=== PATIENT | female | born 1990 | race Caucasian/White ===

== ENCOUNTER 2021-07-13 19:30 | Emergency (ER) | payer OTHER, BC ==
[~2021-07-13] VITALS: Ht 170.2 cm; Wt 69.4 kg
[2021-07-13 19:45] VITALS: BP_SYST 97
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
--- NOTE | 2021-07-13 20:00 | NUR ---
ER in triage examining patient.
[2021-07-13 21:23] VITALS: BP_SYST 98
--- NOTE | 2021-07-13 21:23 | NUR ---
Patient given written and verbal discharge instructions and verbalizes understanding. ER MD discussed with patient the results and treatment provided. Patient in stable condition. ID arm band removed. No Rx given. Patient educated on pain management and to follow up with PMD. Pain Scale 2/10. Opportunity for questions provided and answered.
== END 2021-07-13 21:23 | disposition home or self-care (01) ==
LOC: SED 19:30
DX: O9A.211 Injury, poisoning and certain other consequences of external causes complicating pregnancy, first trimester (principal); S39.91XA Unspecified injury of abdomen, initial encounter; Z3A.12 12 weeks gestation of pregnancy; V49.49XA Driver injured in collision with other motor vehicles in traffic accident, initial encounter; Y93.89 Activity, other specified; Y92.89 Other specified places as the place of occurrence of the external cause; Y99.8 Other external cause status
CPT/HCPCS: 76801; 99284

== ENCOUNTER 2022-04-20 17:44 | Inpatient (IN) | payer BC ==
[~2022-04-20] VITALS: Ht 170.2 cm; Wt 72.1 kg
[2022-04-20 17:58] VITALS: BP_SYST 135
--- NOTE | 2022-04-20 18:10 | NUR ---
Patient triaged and placed in waiting room. VSS and patient appears in no acute distress at this time. Accompanied by self , awaiting available bed, and MD notified of need for MSE.
--- NOTE | 2022-04-20 18:15 | NUR ---
Pt brought by friend, Zoe&Ox4, pt presents to ER with epigastric pain and nausea, no vomiting note at this time, skin pink and warm, cap refill <3, VSS, respirations even and unlabored, will cont to monitor.
--- NOTE | 2022-04-20 19:20 | NUR ---
PATIENT PLACED IN BED 5 FOR EVAL, REPORT GIVEN TO ONCOMING RN.
[2022-04-20 19:25] LABS: BILIRUBIN,URINE 1+ (NEGATIVE); BLOOD, URINE NEGATIVE (NEGATIVE); CLARITY/URINE CLEAR (CLEAR); GLUCOSE,URINE NEGATIVE (NEGATIVE); KETONES,URINE 1+ (NEGATIVE); LEUKOCYTE ESTERASE ,URINE TRACE (NEGATIVE); NITRITE, URINE NEGATIVE (NEGATIVE); PROTEIN URINE NEGATIVE (NEGATIVE)
[2022-04-20 19:31] LABS: COLOR,URINE AMBER (YELLOW)
[2022-04-20 19:38] LABS: BACTERIA,URINE FEW /HPF (None Seen); MUCUS,URINE 1+ /LPF (None Seen); RBC,URINE 0-3 /HPF (0-3); WBC,URINE 0-3 /HPF (0-3)
--- NOTE | 2022-04-20 19:40 | NUR ---
PT IS AA&OX4. AFEBRILE. NAD. C/O 4/10 EPIGASTRIC PAIN. SHE TOOK ZOFRAN ODT & PANTROPRAZOLE 40MG PO PRIOR TO COMING TO THE ER AND IT HAS HELPED HER ABD PAIN. PER PT. SHE'S HAD GASTRIC SLEEVE SURGERY IN SEPTEMBER 2021 AND NOW SHE'S BEEN HAVING N/V, ABD PAIN AND WHEN SHE'S VOMITING, SHE BURPS ALOT. SHE HAS AN UPCOMING SURGERY THIS COMING 2021. AMBULATORY W/ STEADY GAIT. SAFE & HAZARD FREE ENVIRONMENT PROVIDED.
[2022-04-20 20:00] LABS: BASOPHILS % (AUTO) 0.2 % (0.0-2.0); EOSINOPHILS % (AUTO) 0.4 % (0.0-4.0); HEMATOCRIT 35.3 % (36-48); HEMOGLOBIN 11.8 g/dL (12.0-16.0); LYMPHOCYTES # (AUTO) 2.6 K/uL (1.0-5.5); LYMPHOCYTES % (AUTO) 24.3 % (20.5-51.5); MEAN CORPUSCULAR HEMOGLOBIN 28 pg (27-31); MEAN CORPUSCULAR HGB CONC 33 % (32-36); MEAN CORPUSCULAR VOLUME 83 fL (79.0-98.0); MONOCYTES # (AUTO) 0.9 K/uL (0.0-1.0); MONOCYTES % (AUTO) 8.7 % (1.7-9.3); NEUTROPHILS # (AUTO) 7.1 K/uL (1.8-7.7); NEUTROPHILS % (AUTO) 66.4 % (40.0-70.0); PLATELET COUNT (AUTO) 245 K/uL (130-430); RED BLOOD CELL COUNT(AUTO) 4.28 MIL/uL (4.2-6.2); RED CELL DISTRIBUTION WIDTH 13.4 % (9.0-15.0); WHITE BLOOD COUNT (AUTO) 10.7 K/uL (4.8-10.8)
[2022-04-20 20:10] LABS: CALCIUM 8.8 mg/dL (8.4-11.0); CREATININE 0.71 mg/dL (0.55-1.30); POTASSIUM 3.5 mmol/L (3.5-5.1)
[2022-04-20 20:29] LABS: ALBUMIN 3.7 g/dL (3.4-4.8); TOTAL BILIRUBIN 0.8 mg/dL (0.0-1.0)
--- NOTE | 2022-04-20 20:33 | NUR ---
LAB CALLED RE: PT'S CRITICAL VALUE AMYLASE= 3,593. LIPASE= 12,655. DR. FRITZ MADE AWARE.
--- NOTE | 2022-04-20 21:15 | NUR ---
COVID SWAB COLLECTED AND SENT TO LAB.
--- NOTE | 2022-04-20 21:16 | NUR ---
# 20 gauge angiocath placed to R AC. Use of asceptic technique. Opsite placed over site. Blood return noted. Flushed with 10 cc of normal saline. No evidence of infiltration noted. Patient tolerated well.
[2022-04-20] MEDS ORDERED: NACL 0.9% 1,000 ML IV ONE (21:30)
[2022-04-20] MEDS ORDERED: MORPHINE 4 MG INJ. 4 MG/ML VIAL IVP ONE (21:30)
[2022-04-20] MEDS ORDERED: ONDANSETRON HCL 4 MG/2 ML VIAL IVP ONE (21:30)
--- NOTE | 2022-04-20 21:37 | NUR ---
Admit bed requested Patient will be admitted to care of Dr. MOSQUERA. Admitted to MED SURG unit. Diagnosis GALLSTONES PACREATITIS Inpatient YES Observation NO Orientation concerns or request close to nursing station NO Covid Status PENDING On vent or bipap NO Isolation requirements NO Needs a sitter NO From Home Yes Requires Dialysis No Med Rec Completed Yes
[2022-04-20] MEDS ORDERED: PRO40 PO (21:40)
[2022-04-20] MEDS ORDERED: ONDA-8 TL (21:40)
[2022-04-20] MEDS: cefTRIAXone 1 GM in D5W 50 ML IV SCH (22:03)
[2022-04-20] MEDS ORDERED: cefTRIAXone 1 GM VIAL ONE (22:05)
--- NOTE | 2022-04-20 22:47 | NUR ---
Patient will be admitted to care of [facility]. Admitted to MEDSURG unit. Will go to room 122B. Belongings list completed. Complete and up to date summary report printed. SBAR report to be given at bedside with opportunity for questions.
[2022-04-20] MEDS ORDERED: D5/0.45 NS 1,000 ML IV SCH (23:00)
--- NOTE | 2022-04-20 23:00 | NUR ---
ADMISSION NOTE Received patient from ER via gurney. Patient admitted with diagnosis of GALLSTONES PANCREATITIS. Patient is awake, alert, oriented X 4. Patient oriented to hospital room, call light, toileting, pain management and safety-teach back done. Patient informed that their room number is 122b. Personal belongings checked and Belongings List documented. Call light within reach.
[2022-04-20 23:05] VITALS: BP_SYST 111
[2022-04-21] MEDS: MORPHINE 4 MG INJ. 4 MG/ML VIAL IVP PRN (01:26)
[2022-04-21] MEDS ORDERED: FLU VACC QS2022-23(6MOS UP)/PF 0.5 ML/SYR SYRINGE I.M. ONE (03:15)
--- NOTE | 2022-04-21 05:30 | NUR ---
CONSULTATION PAGED/CALLED Reason for Consultation: GALLSTONES PANCREATITS Person Who was Notified: TONJA Consulting Physician: BABS ARCHULETA CLIENT SOLUTIONS DIRECTOR Arborist Climber Specialty: Ordering Physician: DEMETRI
--- NOTE | 2022-04-21 05:32 | NUR ---
CONSULTATION PAGED/CALLED Reason for Consultation: GALLSTONES PANCREATITIS Person Who was Notified: SONAL Consulting Physician: Blanca ROA Cigarette Making Examiner Specialty: Ordering Physician: DEMETRI
[2022-04-21 07:09] LABS: BASOPHILS % (AUTO) 0.3 % (0.0-2.0); EOSINOPHILS # (AUTO) 0.1 K/uL (0.0-0.4); EOSINOPHILS % (AUTO) 0.9 % (0.0-4.0); HEMATOCRIT 35.1 % (36-48); HEMOGLOBIN 11.5 g/dL (12.0-16.0); LYMPHOCYTES # (AUTO) 2.8 K/uL (1.0-5.5); LYMPHOCYTES % (AUTO) 45.1 % (20.5-51.5); MEAN CORPUSCULAR HEMOGLOBIN 27 pg (27-31); MEAN CORPUSCULAR HGB CONC 33 % (32-36); MEAN CORPUSCULAR VOLUME 83 fL (79.0-98.0); MONOCYTES # (AUTO) 0.4 K/uL (0.0-1.0); NEUTROPHILS # (AUTO) 2.9 K/uL (1.8-7.7); NEUTROPHILS % (AUTO) 46.7 % (40.0-70.0); PLATELET COUNT (AUTO) 210 K/uL (130-430); RED BLOOD CELL COUNT(AUTO) 4.23 MIL/uL (4.2-6.2); RED CELL DISTRIBUTION WIDTH 13.4 % (9.0-15.0); WHITE BLOOD COUNT (AUTO) 6.2 K/uL (4.8-10.8)
[2022-04-21 07:19] LABS: CALCIUM 7.9 mg/dL (8.4-11.0); CREATININE 0.64 mg/dL (0.55-1.30); POTASSIUM 3.4 mmol/L (3.5-5.1)
[2022-04-21 07:22] LABS: ALBUMIN 3.1 g/dL (3.4-4.8); TOTAL BILIRUBIN 0.7 mg/dL (0.0-1.0)
[2022-04-21 08:00] VITALS: BP_SYST 105
[2022-04-21 12:00] VITALS: BP_SYST 116
[2022-04-21] MEDS: MORPHINE 2 MG/ML INJ. SYRINGE IVP PRN (15:46)
[2022-04-21 16:00] VITALS: BP_SYST 108
[2022-04-21] MEDS: LR 1,000 ML IV SCH ×2 (16:47→23:42)
[2022-04-21 20:47] VITALS: BP_SYST 105
[2022-04-21] MEDS ORDERED: cefTRIAXone 1 GM VIAL IV SCH (21:00)
[2022-04-21] MEDS ORDERED: iohexoL 350 mgI/mL, 100 ML INFUS..BTL IV ONE (21:16)
--- NOTE | 2022-04-21 21:26 | NUR ---
Patient went to CT of abd/pelvis via wheelchair in no acute distress.
--- NOTE | 2022-04-21 21:41 | NUR ---
Patient's back from the CT scan via wheelchair in no acute distress. IVF reinserted back
[2022-04-22] MEDS ORDERED: cefTRIAXone 1 GM IVPB PREMIX 50 ML IV ONE (00:05)
[2022-04-22] MEDS: cefTRIAXone 1 GM in D5W 50 ML IV SCH (00:12)
[2022-04-22 00:16] VITALS: BP_SYST 113
[2022-04-22] MEDS: LR 1,000 ML IV SCH ×4 (06:44→21:27)
[2022-04-22 08:00] VITALS: BP_SYST 100; BP_SYST 110
[2022-04-22 12:00] VITALS: BP_SYST 110
[2022-04-22] MEDS: MORPHINE 2 MG/ML INJ. SYRINGE IVP PRN (15:56)
[2022-04-22 16:00] VITALS: BP_SYST 112
--- NOTE | 2022-04-22 17:30 | NUR ---
RECEIVED CALL FROM CHARGE NURSE STATING PATIENT CALL MARKETING DEVELOPMENT REPRESENTATIVE STATING SHE WOULD LIKE TO LEAVE AMA. PT VERBALIZED TO ME THAT SHE WOULD LIKE TO HAVE A TIME FRAME ON WHEN THE SURGEON WILL SEE HER. I EXPLAINED TO PT THE SURGEON HAS BEEN CONSULTED TODAY AND THE SURGEON HAS 24 HOURS TO ROUND. I INFORMED PT THE SURGEON HAS BEEN MADE AWARE OF THE CONSULT. PAGED AT THIS TIME.
--- NOTE | 2022-04-22 17:40 | NUR ---
RECEIVED CALL FROM MD. MD STATED HE WILL TRY TO SEE PATIENT TONIGHT, IF NOT HE WILL SEE PT TOMORROW. PROVIDED MD UPDATE ON ADMISSION AND MOST RECENT WBC ALT AND AST LEVELS. STATED HE CAN NOT PERFORM SURGERY UNTIL LIVER ENZYMES LEVELS ARE SAFE. I COMMUNICATED THIS INFORMATION TO PATIENT. ALSO EXPLAIN THE HEALTH RISK OF LEAVING AMA. I EXPLAINED TO PATIENT THAT SHE CAN NOT BE HELD AGAINST HER WILL. PT VERBALIZED UNDERSTANDING OF TEACHINGS. PATIENT AGREED TO STAY AT HOSPITAL.
--- NOTE | 2022-04-22 17:48 | NUR ---
CONSULTATION: REASON FOR CONSULT: GALLSTONES CONSULTING PHYSICIAN: OSVALDO ORDERED BY: DEMETRI SPOKE WITH JOSELYN [phone]
[2022-04-22 20:08] VITALS: BP_SYST 114
[2022-04-22] MEDS: MORPHINE 4 MG INJ. 4 MG/ML VIAL IVP PRN (21:28)
[2022-04-23] MEDS ORDERED: cefTRIAXone 1 GM IVPB PREMIX 50 ML IV ONE (02:40)
[2022-04-23] MEDS: cefTRIAXone 1 GM in D5W 50 ML IV SCH (02:58)
[2022-04-23 03:42] VITALS: BP_SYST 94
[2022-04-23] MEDS: LR 1,000 ML IV SCH ×4 (03:48→19:42)
[2022-04-23 06:40] LABS: BASOPHILS # (AUTO) 0.1 K/uL (0.0-0.2); BASOPHILS % (AUTO) 1.7 % (0.0-2.0); EOSINOPHILS # (AUTO) 0.1 K/uL (0.0-0.4); EOSINOPHILS % (AUTO) 1.4 % (0.0-4.0); HEMATOCRIT 33.9 % (36-48); HEMOGLOBIN 11.3 g/dL (12.0-16.0); LYMPHOCYTES # (AUTO) 1.4 K/uL (1.0-5.5); LYMPHOCYTES % (AUTO) 33.1 % (20.5-51.5); MEAN CORPUSCULAR HEMOGLOBIN 27 pg (27-31); MEAN CORPUSCULAR HGB CONC 33 % (32-36); MEAN CORPUSCULAR VOLUME 82 fL (79.0-98.0); MONOCYTES # (AUTO) 0.4 K/uL (0.0-1.0); MONOCYTES % (AUTO) 9.2 % (1.7-9.3); NEUTROPHILS # (AUTO) 2.3 K/uL (1.8-7.7); NEUTROPHILS % (AUTO) 54.6 % (40.0-70.0); PLATELET COUNT (AUTO) 224 K/uL (130-430); RED BLOOD CELL COUNT(AUTO) 4.12 MIL/uL (4.2-6.2); RED CELL DISTRIBUTION WIDTH 12.9 % (9.0-15.0); WHITE BLOOD COUNT (AUTO) 4.2 K/uL (4.8-10.8)
[2022-04-23 06:58] LABS: CALCIUM 8.2 mg/dL (8.4-11.0); CREATININE 0.57 mg/dL (0.55-1.30); POTASSIUM 3.7 mmol/L (3.5-5.1); TOTAL BILIRUBIN 0.5 mg/dL (0.0-1.0)
--- NOTE | 2022-04-23 07:00 | NUR ---
RECEIVED AN ORDER OF TORADOL IVP Q 6H PRN. MD RILEY DOES NOT WANT PATIENT TO GET MORPHINE FOUR BEFORE HYDA SCAN. PATIENT MADE AWARE AND VERBALIZED UNDERSTANDING AND THE REASON WHY.
[2022-04-23] MEDS: MORPHINE 4 MG INJ. 4 MG/ML VIAL IVP PRN (07:09)
[2022-04-23 08:30] VITALS: BP_SYST 117
[2022-04-23] MEDS: KETOROLAC TROMETHAMINE 30 MG VIAL IVP PRN ×2 (09:59→21:14)
[2022-04-23 12:00] VITALS: BP_SYST 112
[2022-04-23 16:00] VITALS: BP_SYST 116
[2022-04-23] MEDS: MORPHINE 2 MG/ML INJ. SYRINGE IVP PRN (18:47)
--- NOTE | 2022-04-23 19:30 | NUR ---
Surgeon Called: Spoke with Dr Correa and relayed lab results and Hida Scan results.With orders for Cmp with lipase and amylase in am. Informed primary nurse Bekah ,surgeon will come and talk to patient tomorrow after lab results and updates.No surgery needed until Pancreatitis is resolved per surgeon.
--- NOTE | 2022-04-23 19:40 | NUR ---
Opening note Received patient awake, AOx4, resting in bed. No distress and nonlabored breathing on room air. IVF infusing via IV to RAC. Bed is locked in lowest position, side rails 2x and call light w/in reach. Bed alarm is off, she is ambulatory and has been walking to restroom. Updated board.
[2022-04-23 20:10] VITALS: BP_SYST 120
--- NOTE | 2022-04-23 21:14 | NUR ---
Pain med, Patient reporting moderate pain to abdomen. Administered Toradol as ordered. No further needs, wctm
[2022-04-23] MEDS: CEFTRIAXONE SOD 1 GM/ DEXTROSE,ISO 50 ML PREMIX IV SCH (23:23)
--- NOTE | 2022-04-23 23:23 | NUR ---
Rocephin Administered Rocephin, reviewed side effects and she verbalized understanding, infusing well, no s/sx of infiltration. Presently pain is under control, she is comfortable.
[2022-04-24] VITALS: BP_SYST 103
[2022-04-24] MEDS: LR 1,000 ML IV SCH ×4 (00:35→21:01)
--- NOTE | 2022-04-24 00:39 | NUR ---
IVF Hung new bag of LR, infusing well, tolerating.
--- NOTE | 2022-04-24 06:50 | NUR ---
closing note Patient is resting in bed, awake and presently denies pain. No distress. IVF infusing well, no s/sx of infiltration noted. Hung new bag of IVF - LR. Needs met throughout shift, call light w/in reach. Will endorse care.
[2022-04-24 08:10] LABS: ALBUMIN 2.9 g/dL (3.4-4.8); CALCIUM 8.4 mg/dL (8.4-11.0); CREATININE 0.62 mg/dL (0.55-1.30); POTASSIUM 3.8 mmol/L (3.5-5.1)
[2022-04-24 12:38] VITALS: BP_SYST 143
[2022-04-24 17:11] VITALS: BP_SYST 104
[2022-04-24 19:40] VITALS: BP_SYST 111
[2022-04-24] MEDS: KETOROLAC TROMETHAMINE 30 MG VIAL IVP PRN (21:01)
[2022-04-24] MEDS: CEFTRIAXONE SOD 1 GM/ DEXTROSE,ISO 50 ML PREMIX IV SCH (21:03)
[2022-04-25] VITALS: BP_SYST 110
[2022-04-25] MEDS: LR 1,000 ML IV SCH ×5 (00:17→23:09)
--- NOTE | 2022-04-25 06:50 | NUR ---
CLOSING NOTE PATIENT VERBALIZED NO ABDOMINAL PAIN THROUGHOUT THE NIGHT. AT THIS TIME, PATIENT IS RESTING IN BED, STABLE, NO SIGNS OF RESPIRATORY DISTRESS. SHE IS AMBULATING WELL WITHOUT ASSISTANCE NEEDED. BED IS LOCKED, AND AT THE LOWEST LEVEL. FALL, SAFETY, RESPIRATORY, AND ASPIRATION PRECAUTIONS HAVE BEEN IN PLACE THROUGHOUT THE SHIFT. WILL CONTINUE TO MONITOR UNTIL REPORT IS GIVEN AT BEDSIDE TO AM NURSE. PATIENT HAS BEEN NPO THROUGHOUT THE NIGHT.
[2022-04-25 08:04] VITALS: BP_SYST 111
[2022-04-25 08:06] LABS: HEPATITIS A AB, IgM Negative (Negative); HEPATITIS B CORE AB, IgM Negative (Negative); HEPATITIS B SURFACE AG Negative (Negative)
--- NOTE | 2022-04-25 08:18 | NUR ---
CONSULTATION PAGED0= REASON FOR CONSULTATION:GALLSTONES WAS CONSULT CALLED?Y PERSON WHO WAS NOTIFIED:JOSSELINE CONSULTING PHYSICIAN:NEL DIAZ FIELD AGENT SPECIALTY:SURGEON FIELD AGENT PHONE NUMBER:[phone] REQUESTING PHYSICIAN:SUSAN BARRERA
[2022-04-25 08:28] LABS: BASOPHILS % (AUTO) 0.6 % (0.0-2.0); EOSINOPHILS % (AUTO) 1.3 % (0.0-4.0); HEMOGLOBIN 10.9 g/dL (12.0-16.0); LYMPHOCYTES # (AUTO) 1.2 K/uL (1.0-5.5); LYMPHOCYTES % (AUTO) 32.5 % (20.5-51.5); MEAN CORPUSCULAR HEMOGLOBIN 27 pg (27-31); MEAN CORPUSCULAR HGB CONC 33 % (32-36); MEAN CORPUSCULAR VOLUME 83 fL (79.0-98.0); MONOCYTES # (AUTO) 0.2 K/uL (0.0-1.0); MONOCYTES % (AUTO) 5.2 % (1.7-9.3); NEUTROPHILS # (AUTO) 2.2 K/uL (1.8-7.7); NEUTROPHILS % (AUTO) 60.4 % (40.0-70.0); PLATELET COUNT (AUTO) 225 K/uL (130-430); RED BLOOD CELL COUNT(AUTO) 3.98 MIL/uL (4.2-6.2); WHITE BLOOD COUNT (AUTO) 3.7 K/uL (4.8-10.8)
[2022-04-25 08:46] LABS: ALBUMIN 3.2 g/dL (3.4-4.8); CALCIUM 8.5 mg/dL (8.4-11.0); CREATININE 0.63 mg/dL (0.55-1.30); POTASSIUM 4.2 mmol/L (3.5-5.1); TOTAL BILIRUBIN 0.6 mg/dL (0.0-1.0)
[2022-04-25 11:10] VITALS: BP_SYST 105
--- NOTE | 2022-04-25 12:30 | NUR ---
Dietitian Recommendations * Consider Clear Liquid diet w/ Ensure Clear TID after Sx and progression to a solid, low-lactose, low-fat, high-protein diet as tolerated during recovery LP, MS, RD Please refer to Nutrition Assessment for details. Addendum: 04/25/22 at [address] Amended: Links added.
--- NOTE | 2022-04-25 13:29 | NUR ---
DR OSVALDO TREVINO MD THIS MORNING. STATED THAT, HE PLAN TO DO SURGERY Friday04/25/22 DEPENDING ON THE AMYLASE AND LIPASE RESULT
[2022-04-25 16:10] VITALS: BP_SYST 118
--- NOTE | 2022-04-25 16:49 | NUR ---
0800: PATIENT NPO DUE TO ELEVATED AMYLASE AND LIPASE LEVEL. PLAN FOR SURGERY WHEN LAB RESULT W/IN RANGE PER DR. LEMONS. NO C/O ANY PAIN OR DISCOMFORT NOTED. WILL CONTINUE TO MONITOR PATIENT. 1200: AMYLASE AND LIPASE RESULT TO DR. LEMONS. PLAN FOR SURGERY TOMORROW AFTERNOON 1600: PATIENT CONTINUE TO BE PAINFREE, COMFORTABLE.
--- NOTE | 2022-04-25 19:00 | NUR ---
1900: STARTED ON CLEAR LIQUID DIET W/O ANY ABDOMINAL DISCOMFORT NOTED. TO BE NPO POST MIDNIGHT, SURGERY SCHEDULE TENTATIVELY FOR TOMORROW AFTERNOON. ENDORSED TO PM SHIFT NURSE.
--- NOTE | 2022-04-25 19:52 | NUR ---
AWAKE AND ALERT PATIENT INDEPENDENT WITH ADL'S. SAYS SHE IS PENDING SURGERY FRIDAY DISCHARGE ON FRIDAY PER HER SURGEON'S ORDER.
[2022-04-25 19:59] VITALS: BP_SYST 112
[2022-04-25] MEDS: CEFTRIAXONE SOD 1 GM/ DEXTROSE,ISO 50 ML PREMIX IV SCH (21:13)
[2022-04-25 23:30] VITALS: BP_SYST 113
[2022-04-26] VITALS: BP_SYST 113
[2022-04-26] MEDS: LR 1,000 ML IV SCH ×4 (04:47→22:01)
--- NOTE | 2022-04-26 05:19 | NUR ---
PATIENT GIVEN CHG BATH, NEW LINENS, GOWN, PAD FOR MENSES AND REQUEST TO OBTAIN URINE FOR SURGERY.
[2022-04-26 05:53] LABS: BILIRUBIN,URINE NEGATIVE (NEGATIVE); BLOOD, URINE 3+ (NEGATIVE); CLARITY/URINE CLEAR (CLEAR); COLOR,URINE YELLOW (YELLOW); GLUCOSE,URINE NEGATIVE (NEGATIVE); KETONES,URINE 1+ (NEGATIVE); LEUKOCYTE ESTERASE ,URINE NEGATIVE (NEGATIVE); NITRITE, URINE NEGATIVE (NEGATIVE); PROTEIN URINE NEGATIVE (NEGATIVE); UROBILINOGEN,URINE 0.2 (0.2-1.0)
[2022-04-26 06:28] LABS: BACTERIA,URINE FEW /HPF (None Seen); RBC,URINE 50-80 /HPF (0-3)
[2022-04-26 06:29] LABS: MUCUS,URINE None Seen /LPF (None Seen)
[2022-04-26 07:37] LABS: BASOPHILS % (AUTO) 0.8 % (0.0-2.0); EOSINOPHILS # (AUTO) 0.1 K/uL (0.0-0.4); EOSINOPHILS % (AUTO) 2.3 % (0.0-4.0); HEMOGLOBIN 10.9 g/dL (12.0-16.0); LYMPHOCYTES # (AUTO) 1.5 K/uL (1.0-5.5); LYMPHOCYTES % (AUTO) 37.4 % (20.5-51.5); MEAN CORPUSCULAR HEMOGLOBIN 28 pg (27-31); MEAN CORPUSCULAR HGB CONC 34 % (32-36); MEAN CORPUSCULAR VOLUME 81 fL (79.0-98.0); MONOCYTES # (AUTO) 0.4 K/uL (0.0-1.0); MONOCYTES % (AUTO) 10.5 % (1.7-9.3); NEUTROPHILS # (AUTO) 1.9 K/uL (1.8-7.7); PLATELET COUNT (AUTO) 222 K/uL (130-430); RED BLOOD CELL COUNT(AUTO) 3.92 MIL/uL (4.2-6.2)
[2022-04-26 08:10] LABS: CALCIUM 8.4 mg/dL (8.4-11.0); CREATININE 0.59 mg/dL (0.55-1.30); POTASSIUM 3.8 mmol/L (3.5-5.1)
[2022-04-26 08:13] LABS: PROTHROMBIN TIME 10.9 SECS (9.5-12.5)
[2022-04-26 12:00] VITALS: BP_SYST 90
[2022-04-26 16:00] VITALS: BP_SYST 108
--- NOTE | 2022-04-26 17:45 | NUR ---
Dr Sanchez requested that nurse come to bedside with him to give patient report. When in room he informed patient that her surgery was dropped and it will happen tommorow on 04/27/2022. Primary nurse did not know that surgery was allegely postponed. Patient immediately started crying and was very upset and anxious and threaten to walk out of hospital AMA. One of the Doctors came by unamely and said they were waiting for other staff to appear to OR before surgery could take place. Surgery was suppose to be at 1500, patient says surgeon has not spoke with her and she never saw the surgeon who was to have surgery on her to remove gallbladder. Patient says Daniel did the same thing last week and was not knowledgeable of what was going on with patient. Patient says nurse gave good service but it was the doctor that made her upset because he never knows whats going on.
--- NOTE | 2022-04-26 19:58 | NUR ---
Patient is menustrating and 2 weeks.
[2022-04-26] MEDS ORDERED: LR 1,000 ML IV.SOLN IV ONE (20:08)
[2022-04-26] MEDS ORDERED: GLYCOPYRROLATE 0.2 MG/ML VIAL ONE (20:08)
[2022-04-26] MEDS ORDERED: NS 1000 ML IV.SOLN IV ONE (20:08)
[2022-04-26] MEDS ORDERED: MIDAZOLAM HCL 5 MG/ML VIAL (VERSED) IV ONE (20:08)
[2022-04-26] MEDS ORDERED: NS IRRIG SOLN 1000 ML IR ONE (20:08)
[2022-04-26] MEDS ORDERED: HYDROmorphone 2 MG/ML VIAL ONE (20:08)
[2022-04-26] MEDS ORDERED: SEVOFLURANE 15 MIN GAS INH ONE (20:08)
[2022-04-26] MEDS ORDERED: NS 100 ML BAG ONE (20:08)
[2022-04-26] MEDS ORDERED: ONDANSETRON HCL 4 MG/2 ML VIAL ONE (20:08)
[2022-04-26] MEDS ORDERED: BUPIVACAINE /PF 0.25% 30 ML VIAL INJ ONE (20:08)
[2022-04-26] MEDS ORDERED: ROCURONIUM BROMIDE 10 MG/ML (ZEMURON) ONE (20:08)
[2022-04-26] MEDS ORDERED: PROPOFOL 200MG/ 20ML VIAL (DIPRIVAN) IV ONE (20:08)
[2022-04-26] MEDS ORDERED: KETOROLAC TROMETHAMINE 30 MG VIAL ONE (20:08)
[2022-04-26] MEDS ORDERED: PHENYLEPHRINE HCL 10 MG/ML VIAL (NEOSYNEPHRINE) ONE (20:08)
[2022-04-26] MEDS ORDERED: DEXAMETHASONE SOD PHOSPHATE 4 MG/ML VIAL ONE (20:08)
[2022-04-26] MEDS ORDERED: ACETAMINOPHEN I.V. 1000 MG 100 ML IV ONE ×2 (20:12→20:15)
[2022-04-26] MEDS ORDERED: ONDANSETRON HCL 4 MG/2 ML VIAL IVP PRN (20:15)
[2022-04-26] MEDS ORDERED: MEPERIDINE HCL/PF 25 MG/ML DISP.SYRIN IVP PRN (20:15)
[2022-04-26] MEDS ORDERED: HYDROmorphone 1 MG/ML INJ. CARTRIDGE IVP PRN (20:15)
[2022-04-26] MEDS ORDERED: NALOXONE HCL 0.4 MG/ML AMP (NARCAN) IVP PRN (20:15)
[2022-04-26] MEDS ORDERED: HYDROmorphone 2 MG/ML VIAL IVP PRN (20:15)
[2022-04-26] MEDS ORDERED: MEPERIDINE HCL/PF 25 MG/ML DISP.SYRIN ONE (20:16)
[2022-04-27] VITALS: BP_SYST 109
[2022-04-27] MEDS: ONDANSETRON HCL 4 MG/2 ML VIAL IVP PRN ×2 (01:16→09:46)
[2022-04-27] MEDS: KETOROLAC TROMETHAMINE 30 MG VIAL IVP PRN ×2 (01:17→07:12)
[2022-04-27] MEDS: CEFTRIAXONE SOD 1 GM/ DEXTROSE,ISO 50 ML PREMIX IV SCH (01:18)
[2022-04-27] MEDS: LR 1,000 ML IV SCH ×3 (04:55→09:00)
[2022-04-27] MEDS ORDERED: MORPHINE 2 MG/ML INJ. SYRINGE IVP PRN (09:15)
[2022-04-27 09:47] LABS: BASOPHILS % (AUTO) 0.1 % (0.0-2.0); HEMATOCRIT 30.1 % (36-48); HEMOGLOBIN 10.4 g/dL (12.0-16.0); LYMPHOCYTES % (AUTO) 9.6 % (20.5-51.5); MEAN CORPUSCULAR HEMOGLOBIN 28 pg (27-31); MEAN CORPUSCULAR HGB CONC 35 % (32-36); MEAN CORPUSCULAR VOLUME 82 fL (79.0-98.0); MONOCYTES # (AUTO) 0.9 K/uL (0.0-1.0); MONOCYTES % (AUTO) 8.5 % (1.7-9.3); NEUTROPHILS # (AUTO) 8.6 K/uL (1.8-7.7); NEUTROPHILS % (AUTO) 81.8 % (40.0-70.0); PLATELET COUNT (AUTO) 314 K/uL (130-430); RED BLOOD CELL COUNT(AUTO) 3.69 MIL/uL (4.2-6.2)
[2022-04-27] MEDS: MORPHINE 4 MG INJ. 4 MG/ML VIAL IVP PRN ×3 (09:47→19:15)
[2022-04-27 09:50] LABS: WHITE BLOOD COUNT (AUTO) 10.5 K/uL (4.8-10.8)
[2022-04-27 10:04] LABS: CALCIUM 8.4 mg/dL (8.4-11.0); CREATININE 0.57 mg/dL (0.55-1.30); POTASSIUM 3.6 mmol/L (3.5-5.1)
[2022-04-27 10:10] LABS: ALBUMIN 3.3 g/dL (3.4-4.8); TOTAL BILIRUBIN 0.5 mg/dL (0.0-1.0)
[2022-04-27 12:00] VITALS: BP_SYST 101
--- NOTE | 2022-04-27 12:15 | NUR ---
Nutrition F/U Admitting Diagnosis Gallstone pancreatitis Reviewed Pertinent Medical/Surgical Hx Medical Record Patient Mother Primary RN Medical History Comment: PMH: (3 mo per pt report) and bariatric Sx (09/2020 per pt report) per EMR review Pt also found w/ acute pancreatitis and possible acute cholecystitis, epigastric pain, vomiting, and increased amylase per physician notes Per EMR review 04/27: pt is POD 1 s/p laparoscopic cholecystectomy, intraoperative cholangiogram and extensive lyses of adhesions 04/26 Subjective Information: RD visited pt w/ mother present at bedside. Pt reported feeling well and voiding urine, no BM yet since Sx last night. Pt reported BM x1 day before Sx. Pt attested to drinking at least 1/2 of Ensure Clear ONS this morning, however, preferred not to consume the other clear liquids. RD provided nutrition education on pt's preferred topics (pancreatitis and fiber-restricted MNT); please refer to interdisciplinary teaching record for details. Per EMR review, pt remains on RA; LBM x1 04/25; PO intakes fair (63% average x2 meal records while on clear liquid diet). Pt is not yet meeting optimal nutritional needs. Current Diet Order/Nutrition Support: Clear liquid x2 days Patient/Significant Other Able To Verbalize Education Provided Not Indicated Pertinent Medications: zofran, LR at 175 ml/hr (4200 ml/day) Pertinent Labs: BG 105 H, AST 29 WNL, ALT 106 H, ALP 170 H, Amylase 65 WNL, Lipase 288 WNL Height (Feet) 5 feet Height (Inches) 7.00 inches Weight (Pounds) 159 pounds -- stable since 04/25 Patient Weight 72.121 kg Body Mass Index 24.90 kg/m2 (normal) Usual Weight 160 lbs %UBW 99 %IBW 118 Hunt[place]/Adjusted Body Weight 135#/61.4 kg Recent Weight Change Yes - Expected wt changes a/w and bariatric Sx within past 1-2 years Weight Status Overweight Gastrointestinal Symptoms None Food Allergies No Usual Diet At Home Regular per nursing nutritional screening Skin Integrity Comment: Santo scale: 23 -- R lateral abd LETICIA drain noted Current % PO Fair Estimated Energy Expenditure (kcals/day) 6797-0104 (30-35 kcal/kg CBW d/t pancreatitis, Sx healing) Estimated Protein Required (g/day) 87-108 (1.2-1.5 gm/kg CBW d/t pancreatitis, Sx healing) Estimated Fluid Required (l/day) 2.2-2.5 (1 ml/kcal/day for maintenance) Problem/Etiology/Signs/Symptoms *MODIFIED* Increased nutritional needs R/T metabolic demands AEB estimated nutritional requirements for pancreatitis/Sx healing. *Ongoing Expected Outcomes/Goals - Monitor advancement of diet, appetite, and PO intakes w/ goal of pt meeting >50% of estimated nutritional needs, labs trending WNL, normal GI function, and skin integrity/wt maintenance Dietitian Recommendations * Continue Clear Liquid diet w/ Ensure Clear TID (ONS yields 720 kcal/day, 24 gm protein/day) * Avoid Full Liquid diet and progress to a solid, low-lactose, low-fat, high-protein diet as tolerated during recovery: Soft (low-fiber/bland) diet w/ Ensure Clear TID * Encourage increase PO intakes Follow Up High Risk: F/U in 2-3 days
--- NOTE | 2022-04-27 12:20 | NUR ---
Dietitian Recommendations * Continue Clear Liquid diet w/ Ensure Clear TID (ONS yields 720 kcal/day, 24 gm protein/day) * Avoid Full Liquid diet and progress to a solid, low-lactose, low-fat, high-protein diet as tolerated during recovery: Soft (low-fiber/bland) diet w/ Ensure Clear TID * Encourage increase PO intakes LP, MS, RD Please refer to Nutrition F/U for details.
[2022-04-27 17:07] VITALS: BP_SYST 109
[2022-04-27 20:00] VITALS: BP_SYST 108
--- NOTE | 2022-04-27 22:44 | NUR ---
Spoke with Dr. Sanchez regarding order for Rocephin which has reached stop date. Received order to continue Rocephin.
--- NOTE | 2022-04-27 22:50 | NUR ---
Spoke with Dr. Correa about patient's pain medications. Patient stated she can't take NSAIDs because of her gastric sleeve, and that morphine made her feel a pressure in her chest. Received order for Percocet and Tylenol PRN.
[2022-04-27] MEDS ORDERED: cefTRIAXone 1 GM in D5W 50 ML IV SCH (23:30)
[2022-04-28] MEDS ORDERED: cefTRIAXone 1 GM IVPB PREMIX 50 ML IV ONE (00:17)
[2022-04-28] MEDS ORDERED: OXYCODONE/ACETAMINOPHEN 5-325 TABLET PO PRN (00:45)
[2022-04-28] MEDS: LR 1,000 ML IV SCH ×4 (01:05→14:05)
[2022-04-28 01:07] VITALS: BP_SYST 115
[2022-04-28] MEDS: ACETAMINOPHEN 500 MG TABLET PO PRN ×2 (01:27→14:41)
[2022-04-28 07:00] VITALS: BP_SYST 116
[2022-04-28 07:26] LABS: ALBUMIN 2.5 g/dL (3.4-4.8); CALCIUM 7.5 mg/dL (8.4-11.0); CREATININE 0.45 mg/dL (0.55-1.30); POTASSIUM 3.2 mmol/L (3.5-5.1); TOTAL BILIRUBIN 0.4 mg/dL (0.0-1.0)
--- NOTE | 2022-04-28 07:30 | NUR ---
CLOSING Patient resting in bed, unlabored breathing on room air. Denies pain currently. LETICIA drain in place with dark red drainage, 235 mL total during shift. Abdominal dressings clean, dry, intact. Got up to bedside commode with standby assist. Call light in reach, safety precautions in place.
[2022-04-28 08:00] VITALS: BP_SYST 112
[2022-04-28 08:51] LABS: BASOPHILS % (AUTO) 0.4 % (0.0-2.0); EOSINOPHILS % (AUTO) 0.8 % (0.0-4.0); HEMATOCRIT 23.4 % (36-48); LYMPHOCYTES # (AUTO) 2.2 K/uL (1.0-5.5); MEAN CORPUSCULAR HEMOGLOBIN 28 pg (27-31); MEAN CORPUSCULAR HGB CONC 34 % (32-36); MEAN CORPUSCULAR VOLUME 81 fL (79.0-98.0); MONOCYTES # (AUTO) 0.5 K/uL (0.0-1.0); MONOCYTES % (AUTO) 9.7 % (1.7-9.3); NEUTROPHILS # (AUTO) 2.6 K/uL (1.8-7.7); NEUTROPHILS % (AUTO) 48.1 % (40.0-70.0); PLATELET COUNT (AUTO) 227 K/uL (130-430); RED BLOOD CELL COUNT(AUTO) 2.87 MIL/uL (4.2-6.2); RED CELL DISTRIBUTION WIDTH 13.2 % (9.0-15.0)
[2022-04-28 09:03] LABS: WHITE BLOOD COUNT (AUTO) 5.4 K/uL (4.8-10.8)
[2022-04-28 12:00] VITALS: BP_SYST 114
[2022-04-28 16:00] VITALS: BP_SYST 122
[2022-04-28 16:47] VITALS: BP_SYST 112
--- NOTE | 2022-04-28 18:16 | NUR ---
Patient today has been in good spirits and has been feeling much better. She ate food and tolerated it well, had pain medicines only twice and she only requested Tylenol all day. Patient has met with surgical staff, and GI physician and was cleared for discharge this afternoon. Discharge instructions were given. Patient has all belongings and have been taken to mother's car. Discvharge instructions included follow up information at this time. Patient was discharged by this RN and taken to her mother's vehicle by wheelchair. No sign or sympotom of acute distress at discharge.
== END 2022-04-28 23:00 | disposition home or self-care (01) | DRG 417 ==
LOC: SED 17:44 → SMU 21:53
PROVIDERS: ADMIT Internal Medicine; ATTEND Internal Medicine
PROC: 0FN44ZZ Release Gallbladder, Percutaneous Endoscopic Approach (ICD-10-PCS; 2022-04-26)
PROC: BF121ZZ Fluoroscopy of Gallbladder using Low Osmolar Contrast (ICD-10-PCS; 2022-04-26)
PROC: 0FT44ZZ Resection of Gallbladder, Percutaneous Endoscopic Approach (ICD-10-PCS; principal; 2022-04-26 16:15)
DX: K80.00 Calculus of gallbladder with acute cholecystitis without obstruction (principal); K85.10 Biliary acute pancreatitis without necrosis or infection; Z20.822 Contact with and (suspected) exposure to COVID-19; K66.0 Peritoneal adhesions (postprocedural) (postinfection); E66.9 Obesity, unspecified; Z68.24 Body mass index [BMI] 24.0-24.9, adult; Z98.891 History of uterine scar from previous surgery; Z98.84 Bariatric surgery status
CPT/HCPCS: 36415; 71045; 74300; 76376; 76700-TC; 78226; 80048; 80053; 80074; 81000; 82150; 83615; 83690; 84702; 85025; 85610-TC; 85730-TC; 86886; 86900; 86901; 87081; 87086; 88300; 88304; 96361; 96374; 96375; 99285; A9537; J0131; J0696; J1100; J1170; J1885; J2175; J2250; J2270; J2370; J2405; J2704; J3490; J7030; J7050; J7060; J7120; Q9967